=== PATIENT | male | born 1965 ===

== ENCOUNTER 2022-04-06 21:04 | Emergency (ER) | payer MEDICAID ==
[~2022-04-06] VITALS: Ht 167.6 cm; Wt 81.8 kg
[2022-04-06] MEDS ORDERED: TOBRAMYCIN/DEXAMETHASONE 5 ML OPHTHALMIC SUSPENSION OU ONE (22:15)
[2022-04-06 22:45] VITALS: BP 132/71
== END 2022-04-06 23:20 | disposition home or self-care (01) ==
LOC: EMS 21:07
DX: H10.9 Unspecified conjunctivitis (principal); J45.909 Unspecified asthma, uncomplicated
CPT/HCPCS: 99283